=== PATIENT | female | born 1950 | race Caucasian/White ===

== ENCOUNTER 2018-10-10 12:17 | Inpatient (IN) | payer OTHER ==
[~2018-10-10] VITALS: Ht 154.9 cm; Wt 83.9 kg
[2018-10-10 12:23] VITALS: BP 142/70
[2018-10-10] MEDS ORDERED: SYNTHROID75 MCG PO (12:30)
[2018-10-10] MEDS ORDERED: LOPRESSOR25 PO (12:30)
[2018-10-10] MEDS ORDERED: SEROQUEL 25 MG25 M1 PO (12:31)
[2018-10-10] MEDS ORDERED: FISH OIL 1,001000 M2 PO (12:31)
[2018-10-10] MEDS ORDERED: PRESERVISION A1 EAC2 PO (12:31)
[2018-10-10] MEDS ORDERED: POTASSIUM99 MG PO (12:31)
[2018-10-10] MEDS ORDERED: MAGOX 400400 MG PO (12:31)
[2018-10-10] MEDS ORDERED: VITAMIN D3400 UNIT PO (12:32)
[2018-10-10 12:45] LABS: ABSOLUTE BASOPHILS 0.1 thou/uL (0.0-0.2); ABSOLUTE EOSINOPHILS 0.1 thou/uL (0.0-0.7); ABSOLUTE LYMPHOCYTES 1.2 thou/uL (0.8-5.3); ABSOLUTE MONOCYTES 0.9 thou/uL (0.0-1.2); ABSOLUTE NEUTROPHILS 6.1 thou/uL (1.6-8.1); BASOPHILS 0.7 %; EOSINOPHILS 1.3 %; HEMOGLOBIN 14.4 gm/dL (12.0-15.0); LYMPHOCYTES 14.3 %; MCHC 33.6 g/dL (28.0-37.0); MCV 95.4 fL (80.0-100.0); MONOCYTES 10.6 %; MPV 7.7 fl. (7.2-11.1); NUCLEATED RBCS 0 /100WBC; PLATELET COUNT* 285 thou/uL (150-400); POLYS 73.1 %; RBC 4.51 mil/uL (4.20-5.00); RDW-CV 13.6 % (10.5-14.5); WBC 8.3 thou/uL (4.0-11.0)
[2018-10-10 12:57] LABS: PCO2 49.5 mmHg (35.0-45.0)
[2018-10-10 13:02] LABS: ALBUMIN 3.6 g/dL (3.4-5.0); ALKALINE PHOSPHATASE 78 U/L (46-116); ANION GAP 8 mmol/L (7-16); BUN 20 mg/dL (7-18); CHLORIDE 102 mmol/L (98-107); CO2 32 mmol/L (21-32); GLUCOSE 148 mg/dL (70-99); POTASSIUM 3.6 mmol/L (3.5-5.1); SGOT 19 U/L (15-37); SGPT 16 U/L (30-65); SODIUM 142 mmol/L (136-145); TOTAL BILIRUBIN 0.2 mg/dL (<0.1-1.0); TOTAL PROTEIN 7.8 g/dL (6.4-8.2); TROPONIN-I LEVEL <0.06 ng/mL (<0.06)
[2018-10-10 14:07] VITALS: BP 130/50
[2018-10-10 14:39] VITALS: BP 135/62
[2018-10-10 17:32] VITALS: BP 138/49
[2018-10-10 20:20] VITALS: BP 137/50
--- NOTE | 2018-10-10 20:28 | NUR ---
PT ARRIVED FROM ER AT 1400. COMLETED ADMISSION ASSESSMENT AND HISTORY. PT A&O X 4. UP AD AUBREY. VITALS, SpO2 STABLE. PT ON 3L OF OXYGEN BY NASAL CANNULA. PT EDUCATED ON FALL RISKS, MEDS, CARE PLAN AND VERBALIZED UNDERSTANDING. PT TOLERATED BREATHING TREATMENT. CALL LIGHT WITHIN REACH. PT RESTING IN BED. WILL CONTINUE TO MONITOR.
--- NOTE | 2018-10-11 04:46 | NUR ---
PATIENT HAS REMAINED ALERT AND ORIENTED X 4 THROUGHOUT THE SHIFT AND RESTING QUIETLY ON HOURLY ROUNDS AFTER MIDNIGHT. PATIENT REPORTING FEELING MUCH BETTER FROM ARRIVAL TO HOSPITAL. O2 BY NASAL CANNULA AT 3L/MIN. SPOT O2 SAT 95%. MEDS AND RT PER ORDER. VITAL SIGNS STABLE. CONTINUE TO MONITOR.
[2018-10-11 08:00] VITALS: BP 150/57
--- NOTE | 2018-10-11 12:12 | EKG ---
[place] [address] ELECTROCARDIOGRAM REPORT Name: MATTHEW CHAUDHARY Room: [address] ADM IN M.R.#: [id number] Admission: 10/10/18 Attend Phys: Sunny Coronado MD Discharge: Date of : 52 Report #: [id number] THIS REPORT FOR: //name// [facility] ED Test Date: 2018-10-10 Test Time: 12:35:39 Pat Name: MATTHEW GRIFFININNIS Department: Room: [facility] Gender: F Ell Teacher: MIKE : 1950 Requested By: Kecia La Order Number: [id number] MD: Luis Miguel Crenshaw Measurements Intervals [place] Rate: 80 P: 95 RI: 168 QRS: -12 QRSD: 111 T: 54 QT: 384 QTc: 443 Interpretive Statements Sinus rhythm Abnormal R-wave progression, early transition Baseline wander in lead(s) V5 No previous ECG available for comparison Electronically Signed On 10-11-2018 12:12:32 CDT by Luis Miguel Crenshaw [email or web address] <ELECTRONICALLY SIGNED> By: Luis Miguel Crenshaw MD, FACC 10/11/18 1212 1235 1235 Luis Miguel Crenshaw MD, FAC /EPI
[2018-10-11 18:13] VITALS: BP 136/55
--- NOTE | 2018-10-11 18:49 | NUR ---
PT IS ALERT AND ORIENTED X 4. IVF INFUSING. PT DENIES NAUSEA AND PAIN. UP AD AUBREY IN ROOM. OXYGEN @ 3L/NC WITH RT WORKING TO WEAN OXYGEN. LACTIC ACID ELEVATED-PHYSICIAN INFORMED. HOURLY ROUNDS MAINTAINED. CALL LIGHT WITHIN REACH.
[2018-10-11 19:45] VITALS: BP 131/62
--- NOTE | 2018-10-12 04:44 | NUR ---
PATIENT HAS REMAINED ALERT AND ORIENTED X 4 THROUGHOUT THE SHIFT AND RESTING AT INTERVALS ON HOURLY ROUNDS. UP INDEPENDENTLY IN THE ROOM. SHOWERED AT HS. MEDS AND IVF'S PER ORDER. O2 NOW AT 2L/MIN WITH SATURATION 96%. VITAL SIGNS STABLE. CONTINUE TO MONITOR.
[2018-10-12 08:00] VITALS: BP 135/53
[2018-10-12 14:47] LABS: INFLUENZA A ANTIGEN None Detected (None Detect); INFLUENZA B ANTIGEN None Detected (None Detect)
[2018-10-12 16:49] VITALS: BP 124/56
--- NOTE | 2018-10-12 17:48 | NUR ---
PT REMAINED A&Ox4 THROUGHOUT SHIFT. IV L FA PATENT, INFUSING. VITALS STABLE. BANDAY REQUESTED TO WEAN OFF OF OXYGEN, GOT TO 1L WITH 94% OX. UP AD AUBREY. PAIN CONTROLLED WITH TYLENOL. CALL LIGHT WITHIN REACH. WILL CONTINUE TO MONITOR.
[2018-10-12 19:45] VITALS: BP 145/68
--- NOTE | 2018-10-13 05:41 | NUR ---
ASSUMED CARE OF PT AT 1900 PT ALERT AND ORIENTED X4 VS AND ASSESSMENT STABLE PT VOICED NO COMPLAINTS AND SLEPT THROUGH THE NIGHT.
--- NOTE | 2018-10-13 07:54 | CON ---
[address] [address] CONSULTATION Name: MATTHEW CHAUDHARY Room: [address] ADM IN M.R.#: [id number] Admission: 10/10/18 Attend Phys: Sunny Coronado MD Discharge: Date of : 52 Report #: [id number] THIS REPORT FOR: //name// CC: Sunny Pete DO DATE OF SERVICE: 10/11/2018 PULMONARY CONSULTATION ATTENDING PHYSICIAN: Sunny Coronado MD. PRIMARY CARE PHYSICIAN: Nelsy Pete DO. LOCATION: Room [facility]. INDICATION FOR CONSULTATION: COPD, bronchospasm, dyspnea. HISTORY OF PRESENT ILLNESS: The patient is a 68-year-old female, current smoker, presented in the Emergency Room Department with shortness of breath for 3-5 days. The patient has had increasing cough with shortness of breath. She had an upper respiratory infection. She was given a Medrol Dosepak and azithromycin. She still had complaints of shortness of breath, was seen in the Emergency Room with some mucus. She had some myalgias. She denies any sore throat. She denies any sick or ill contacts and states she got a flu shot this fall. She states she has never had breathing problems before, but she is chronically short of breath when she tries to walk up a flight of stairs, which has been going on for the last 6-12 months. Occasionally, she is taking an inhaler in the past, but has not been hospitalized for this. Does not recall any other prior chest x-rays or pulmonary function studies. She had a sinus infection in the past and she denies any history of obstructive sleep apnea. She has been on oxygen since being in the hospital. PAST MEDICAL HISTORY: History of hypothyroidism and hypertension, also had some interstitial cystitis. PAST SURGICAL HISTORY: Include dental surgery and hysterectomy in the past. ALLERGIES: SHE HAS ALLERGIES OR INTOLERANCE TO CODEINE. CURRENT MEDICATIONS: Include Solu-Medrol 125 mg IV push every 8 hours, DuoNeb every 4 hours, magnesium oxide 400 mg daily, azithromycin and ceftriaxone 1 time daily, levothyroxine 0.075 mg daily, Seroquel 50 mg at bedtime, enoxaparin 40 [place] [address] CONSULTATION Name: NEENAMATTHEW R Room: [address] IN [facility]#: [id number] Admission: 10/10/18 Attend Phys: Sunny Coronado MD Discharge: Date of : 52 Report #: [id number] FAMILY HISTORY: Negative for premature cardiopulmonary disease. SOCIAL HISTORY: The patient lives on her own. She smokes a pack of cigarettes every day, has a 81-[id number]-vucm history of smoking. Drinks one ariane a week. Denies any other illicit drug use. REVIEW OF SYSTEMS: A 14-point review of systems reviewed and negative except for pertinent positives noted in HPI. PHYSICAL EXAMINATION: GENERAL: This is a 68-year-old female, mildly dyspneic and anxious, short of breath just while sitting in the bed. She can talk to me in half sentences. She is alert and oriented. VITAL SIGNS: Blood pressure is 150/57, heart rate is 84, respirations 20 and her temperature is 36.4 degrees, saturation on 2 liters is 95%. She is 5 feet 5 inches tall, weight is 83 kilograms or 184 pounds, BMI is 35. HEENT: Unremarkable. Sinuses nontender. Pharynx is clear. NECK: Supple without nodes. CHEST: Shows inspiratory and expiratory wheezes with prolonged expiratory phase. Some use of accessory muscles. CARDIOVASCULAR: Shows diminished heart tones, regular rate and rhythm. Heart rate is 84. No gallop or rub was noted. ABDOMEN: Soft, without masses or megaly. EXTREMITIES: No calf tenderness. No cyanosis, clubbing or edema. NEUROLOGIC: Nonfocal and grossly intact. She moves all fours to commands. LABORATORY DATA: From 10/11/2018 this morning shows a hemoglobin of 13, white count 5200, platelets are 260,000. Normal differential. Sodium is 141, potassium is 4.2, BUN 17, creatinine is 1.0 and lactic acid was 2.5, within normal limits. Albumin is low at 3.1. ABGs on 3 liters yesterday afternoon at 12:43 shows a pO2 of 74, pH 7.40, pCO2 is 49, bicarbonate is 30, sat is 94% and carboxyhemoglobin was only 0.3. Chest x-ray portable shows COPD, hyperinflation. No definite pulmonary artery enlargement noted though. IMPRESSION: 1. Most likely acute bronchitis with bronchospasm, has chronic hypercarbia. 2. Moderate chronic obstructive pulmonary disease, untreated and undiagnosed at this time. 3. Chronic tobacco use. 4. Hypothyroidism. 5. Hypertension. PLAN: Again, discussed with the patient. We talked about smoking cessation, states she can do this on her own. I offered her Chantix or nicotine replacement therapy and she refused. She will probably [place] [address] CONSULTATION Name: MATTHEW CHAUDHARY Room: [address] IN [place].#: [id number] Admission: 10/10/18 Attend Phys: Sunny Coronado MD Discharge: Date of : 52 Report #: [id number] treatments. We will check a room air blood gas here in a couple of days to see if she is going to require supplemental oxygen at home. Also, need a room air exercise oximetry. Follow up at some point in time with the [facility] and she will need full PFTs and again, we will see if she is having continued hypercarbia. Add oral and inhaled bronchodilators, nebulizer at home and see if we can cause some improvement. Hopefully, she is just in the moderate range and she has some reversibility left. I discussed this with the patient in detail. Thanks again for allowing us to participate in this lady's care. We will follow up along with you while she is in the hospital and proceed from there. <ELECTRONICALLY SIGNED> By: Brian Zamora MD 10/13/18 0754 1227 0003Brian Zamora MD /nt
[2018-10-13 08:00] VITALS: BP 123/49
--- NOTE | 2018-10-13 10:01 | NUR ---
FAXED FACE SHEET,ORDER,AND PULMONARY CONSULT TO [facility]. SHE WILL DELIVER NEBULIZER TO HOSPITAL TODAY.
[2018-10-13 11:03] VITALS: BP 123/49
[2018-10-13] MEDS ORDERED: CEFDINIR300 MG PO ×2 (11:11→11:30)
[2018-10-13] MEDS ORDERED: PREDNISONE 10 M10 MG PO ×2 (11:20→11:32)
[2018-10-13] MEDS ORDERED: ADVAIR 100-501 EACH INH (11:29)
[2018-10-13] MEDS ORDERED: VENTOLIN HFA 1818 GM INH (11:33)
--- NOTE | 2018-10-13 13:05 | NUR ---
SPOKE WITH DR SPEARS FOR OK FOR PT TO GET DISCHARGED. STATED THAT SHE WAS GOOD FROM HIS STAND POINT AND HAS A NEBULIZER READY TO DELIVER TO SEND HOME WITH PT.
--- NOTE | 2018-10-13 14:06 | NUR ---
PT LEFT UNIT AT 1401 WITH NURSING STAFF. PT LEFT WITH FRIEND BY AZEB. PAPER PRESCRIPTIONS GIVEN. DISCHARGE PACKED SIGNED AND COPY GIVEN TO PT. PT STABLE. ALL BELONGINGS SENT WITH PT.
--- NOTE | 2018-10-14 11:47 | NUR ---
DAUGHTER,ALBINO, CALLED THIS AM AND SAID MOTHER RECEIVED NEBULIZER YESTERDAY PRIOR TO DISCHARGE. SHE DIDN'T,HOWEVER, RECEIVE ANY MEDICATION PRESCRIPTIONS FOR THE NEBULIZER. GERHARD SPOKE WITH . HE ORDERED DUONEBS 5ML Q4HRS PRN 2 WEEKS WORTH. CM CALLED DAUGHTER, NOT PHARMACY LISTED ON CHART. SHE SAID TO USE [facility] [address] EXPLAINED I WOULD CALL IN AND TO GIVE THEM A COUPLE OF HRS TO GET IT READY AND THEN SHE CAN PICK IT UP. SHE WAS APPRECIATIVE. CALLED IN PRESCRIPTION ORDERED TO [facility] [phone] ON AUTOMATED LINE.
== END 2018-10-13 14:00 | disposition home or self-care (01) | DRG 189 ==
LOC: M.ERS 12:17 → M.ORTHSURG 13:14 → M.TBA-ER 13:14 → M.ORTHSURG 14:06
PROVIDERS: Emergency Medicine; Physician Assistant
DX: J96.02 Acute respiratory failure with hypercapnia (principal); J44.1 Chronic obstructive pulmonary disease with (acute) exacerbation; E87.2 Acidosis; R65.10 Systemic inflammatory response syndrome (SIRS) of non-infectious origin without acute organ dysfunction; J96.01 Acute respiratory failure with hypoxia; E03.9 Hypothyroidism, unspecified; F17.210 Nicotine dependence, cigarettes, uncomplicated; E78.5 Hyperlipidemia, unspecified; I10 Essential (primary) hypertension; Z79.899 Other long term (current) drug therapy; Z88.5 Allergy status to narcotic agent; Z71.6 Tobacco abuse counseling; Z90.710 Acquired absence of both cervix and uterus

== ENCOUNTER 2021-04-23 16:31 | Emergency (ER) | payer OTHER ==
[~2021-04-23] VITALS: Ht 154.9 cm; Wt 81.7 kg
[~2021-04-23 16:31] MED LIST: ADVAIR 100-501 EACH INH; CEFDINIR300 MG PO; FISH OIL 1,001000 M2 PO; LOPRESSOR25 PO; MAGOX 400400 MG PO; POTASSIUM99 MG PO; PREDNISONE 10 M10 MG PO; PRESERVISION A1 EAC2 PO; SEROQUEL 25 MG25 M1 PO; SYNTHROID75 MCG PO; VENTOLIN HFA 1818 GM INH; VITAMIN D3400 UNIT PO
[2021-04-23] MEDS ORDERED: ZINC30 MG (16:40)
[2021-04-23 17:43] LABS: ABSOLUTE BASOPHILS 0.1 thou/uL (0.0-0.2); ABSOLUTE EOSINOPHILS 0.2 thou/uL (0.0-0.7); ABSOLUTE LYMPHOCYTES 2.3 thou/uL (0.8-5.3); ABSOLUTE MONOCYTES 0.7 thou/uL (0.0-1.2); ABSOLUTE NEUTROPHILS 4.3 thou/uL (1.6-8.1); BASOPHILS 0.9 %; EOSINOPHILS 2.8 %; HEMATOCRIT 41.4 % (37.0-47.0); HEMOGLOBIN 14.1 gm/dL (12.0-15.0); LYMPHOCYTES 30.1 %; MCH 32.5 pg (26.0-34.0); MCV 95.6 fL (80.0-100.0); MONOCYTES 9.2 %; MPV 7.8 fl. (7.2-11.1); NUCLEATED RBCS 0 /100WBC; PLATELET COUNT* 311 thou/uL (150-400); RBC 4.33 mil/uL (4.20-5.00); RDW-CV 13.4 % (10.5-14.5); WBC 7.6 thou/uL (4.0-11.0)
[2021-04-23 17:54] LABS: CALCIUM 9.6 mg/dL (8.5-10.1); POTASSIUM 4.1 mmol/L (3.5-5.1)
[2021-04-23 18:04] LABS: TOTAL BILIRUBIN 0.3 mg/dL (<0.1-1.0); TOTAL PROTEIN 7.9 g/dL (6.4-8.2)
[2021-04-23] MEDS ORDERED: MECLIZINE HCL25 MG PO (19:31)
[2021-04-23 19:41] VITALS: BP 163/73
--- NOTE | 2021-04-24 13:49 | EKG ---
[place] [address] ELECTROCARDIOGRAM REPORT Name: MATTHEW CHAUDHARY Room: [facility]#: [id number] Admission: 04/23/21 Attend Phys: Discharge: 04/23/21 Date of : 52 Date of Service: 04/23/21 1641 Report #: [id number] THIS REPORT FOR: //name// [facility] ED Test Date: 2021-04-23 Test Time: 16:41:06 Pat Name: MATTHEW CHAUDHARY Department: Room: Gender: F Customer Success Advocate: : 1950 Requested By: Zeina Garrett Order Number: [id number] MD: Fabien Alarcon Measurements Intervals [place] Rate: 58 P: DC: QRS: 8 QRSD: 102 T: 58 QT: 422 QTc: 415 Interpretive Statements sinus rhyhtm low vooltage artifact noted Compared to ECG 10/10/2018 12:35:39 no change Electronically Signed On 04-24-2021 13:49:10 CDT by Fabien Alarcon [email or web address] <ELECTRONICALLY SIGNED> By: Fabien Alarcon MD, [facility] 04/24/21 1349 1641 1641 Fabien Alarcon MD, [facility] /EPI
== END 2021-04-23 19:42 | disposition home or self-care (01) ==
LOC: M.ERS 16:31
PROVIDERS: Nurse Practitioner Family
DX: H81.11 Benign paroxysmal vertigo, right ear (principal); R94.31 Abnormal electrocardiogram [ECG] [EKG]; I10 Essential (primary) hypertension; E03.9 Hypothyroidism, unspecified; E66.9 Obesity, unspecified; Z98.890 Other specified postprocedural states; Z68.34 Body mass index [BMI] 34.0-34.9, adult; Z79.899 Other long term (current) drug therapy; Z88.5 Allergy status to narcotic agent